=== PATIENT | female | born 1970 ===

== ENCOUNTER 2021-07-10 10:50 | Inpatient (IN) | payer OTHER ==
[~2021-07-10] VITALS: Ht 152.4 cm; Wt 65.8 kg
[2021-07-17] MEDS ORDERED: IBU800 MG PO (07:49)
[2021-07-17] MEDS ORDERED: OXYC1TAB9 PO (07:49)
[2021-07-17] MEDS ORDERED: LEVSIN/SL0.125 MG SL (07:49)
== END 2021-07-17 10:00 | disposition home or self-care (01) | DRG 743 ==
LOC: OB/GYN 07-15 09:15 → ICU-2 07-15 09:56 → OB/GYN 07-15 09:56
PROVIDERS: ADMIT Obstetrics & Gynecology Gynecology; ATTEND Obstetrics & Gynecology Gynecology
PROC: 0UT70ZZ Resection of Bilateral Fallopian Tubes, Open Approach (ICD-10-PCS; 2021-07-15)
PROC: 0UT20ZZ Resection of Bilateral Ovaries, Open Approach (ICD-10-PCS; 2021-07-15)
PROC: 0UT90ZZ Resection of Uterus, Open Approach (ICD-10-PCS; principal; 2021-07-15 09:15)
DX: D25.2 Subserosal leiomyoma of uterus (principal); N80.0 Endometriosis of uterus; N72 Inflammatory disease of cervix uteri; Z20.822 Contact with and (suspected) exposure to COVID-19